=== PATIENT | male | born 2000 | race Caucasian/White ===

== ENCOUNTER 2020-04-20 03:07 | Emergency (ER) | payer BC ==
[~2020-04-20] VITALS: Ht 182.9 cm; Wt 147.4 kg
[~2020-04-20 03:07] MED LIST: IBUP600 PO
[2020-04-20] MEDS ORDERED: Ofloxacin5 M1 LEFTEAR (04:41)
== END 2020-04-20 05:07 | disposition home or self-care (01) ==
LOC: ER 03:07
DX: H60.92 Unspecified otitis externa, left ear (principal); T16.2XXA Foreign body in left ear, initial encounter; Z87.891 Personal history of nicotine dependence
CPT/HCPCS: 99282

== ENCOUNTER 2023-08-29 15:41 | Emergency (ER) | payer BC, OTHER ==
[~2023-08-29] VITALS: Ht 182.9 cm; Wt 136.1 kg
[~2023-08-29 15:41] MED LIST changes: +Ofloxacin5 M1 LEFTEAR
[2023-08-29 15:52] VITALS: BP 172/111
== END 2023-08-29 17:16 | disposition home or self-care (01) ==
LOC: ER 15:41
DX: T18.128A Food in esophagus causing other injury, initial encounter (principal)
CPT/HCPCS: 99283

== ENCOUNTER 2023-08-31 16:18 | Emergency (ER) | payer BC, OTHER ==
[~2023-08-31] VITALS: Ht 182.9 cm; Wt 211.3 kg
[2023-08-31 19:39] VITALS: BP 140/88
== END 2023-08-31 19:43 | disposition home or self-care (01) ==
LOC: ER 16:18
DX: J02.9 Acute pharyngitis, unspecified (principal)
CPT/HCPCS: 70491; 99283-25; J1100; Q9967